=== PATIENT | male | born 1960 | race Hispanic/Latino ===

== ENCOUNTER 2016-10-22 11:37 | Emergency (ER) | payer MEDICARE ==
[2016-10-22 12:29] VITALS: BMI 36.3
[2016-10-22 12:31] VITALS: RESP 18; TEMP 98.3; O2SAT 96
[2016-10-22] MEDS ORDERED: Sodium Chloride 0.9% 1,000 ML IV STA (13:09)
[2016-10-22 13:54] LABS: PH,URINE 5.5 (4.7-8.0); URINE BILIRUBIN NEGATIVE (NEGATIVE); URINE BLOOD NEGATIVE (NEGATIVE); URINE GLUCOSE (UA) NEGATIVE (NEGATIVE); URINE KETONE NEGATIVE (NEGATIVE); URINE LEUKOCYTE ESTERASE NEGATIVE Leu/uL (NEGATIVE); URINE PROTEIN NEGATIVE mg/dL (<30 mg/dL); URINE UROBILINOGEN 0.2 E.U./dL (<1 E.U./dL)
[2016-10-22 13:59] LABS: BASO # 0.01 K/mm3 (0.0-2.0); BASO % 0.1 % (0.0-3.0); EOS # 0.2 (0.0-0.7); EOS % 1.8 % (1.5-5.0); GRAN # 5.85 (1.4-6.5); GRAN % 71.6 % (50.0-68.0); HEMATOCRIT 46.8 % (42.0-52.0); LYMPH # 1.7 (1.2-3.4); MEAN CELL VOLUME 89.7 fl (80.0-105.0); MEAN CORPUSCULAR HEMOGLOBIN 30.7 pg (25.0-35.0); MEAN CORPUSCULAR HGB CONC 34.2 g/dl (31.0-37.0); MEAN PLATELET VOLUME 9.5 fl (7.0-11.0); MONO # 0.5 (0.1-0.6); MONO % 5.5 % (1.0-6.0); URINE APPEARANCE CLEAR (CLEAR); URINE COLOR YELLOW (YELLOW); WHITE BLOOD COUNT 8.2 10^3/ul (4.5-11.0)
[2016-10-22 14:02] LABS: ALB/GLOB RATIO 1.4 (1.1-1.8); ALKALINE PHOSPHATASE 56 U/L (38-133); ALT/SGPT 47 U/L (7-56); AST/SGOT 27 U/L (15-59); BILIRUBIN,TOTAL 0.9 mg/dL (0.2-1.3); BLOOD UREA NITROGEN 12 mg/dL (7-21); CALCIUM 9.4 mg/dL (8.4-10.5); CARBON DIOXIDE 27 mmol/L (21-33); CHLORIDE 101 mmol/L (98-107); GFR AFRICAN-AMERICAN > 60; GLUCOSE,RANDOM 92 mg/dL (70-110); LIPASE 133 U/L (23-300); SODIUM 140 mmol/L (132-148); TOTAL PROTEIN 7.6 g/dL (5.8-8.3)
--- NOTE | 2016-10-22 14:36 | ED PDOC ---
Arrival/HPI - General Chief Complaint: Abdominal Pain Time Seen by Provider: 10/22/16 13:09 Historian: Patient - History of Present Illness Narrative History of Present Illness (Text): 10/22/16 13:09 Eduardo Lutz is a 55 year old male, whose past medical history includes diverticulosis, who presents to the emergency department complaining of 1 month history of worsening left-sided abdominal pain. Patient states that he spoke to his GI doctor today who told him to come to the emergency department for evaluation of diverticulitis. Patient notes that he has had intermittent LLQ painfor the past 2 months but over the past month, the pain has been occurring more frequently. Pt states he is moving to [place] and wants to make sure everything is okay. pt states the pain is currently intermittent and non- radiating. pt denies testicular pain. denies flank pain. Patient has not taken any medications for pain. Patient denies any nausea, vomiting, diarrhea, constipation, urinary symptoms, fever, chills, or any other complaints at this time. PMD: Dr. Naranjo Time/Duration: Other (1 month) Symptom Onset: Gradual Symptom Course: Worsening Severity Level: Mild Context: Home Past Medical History - Provider Review Nursing Documentation Reviewed: Yes - Past History Past History: No Previous - Infectious Disease Hx of Infectious Diseases: None - Tetanus Immunization Tetanus Immunization: Unknown - Reproductive Currently : No - Cardiac Hx Pacemaker: No - Pulmonary Hx Bronchitis: Yes - Neurological Hx Paralysis: No - Hematological/Oncological Hx Blood Transfusions: No Hx Blood Transfusion Reaction: No - Musculoskeletal/Rheumatological Hx Back Pain: Yes - Psychiatric Hx Emotional Abuse: No Hx Physical Abuse: No 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) - Past Surgical History Past Surgical History: Non-Contributing - Surgical History Hx Orthopedic Surgery: Yes Other/Comment: L & R THR - Anesthesia Hx Anesthesia: Yes Hx Anesthesia Reactions: No Hx Malignant Hyperthermia: No - Suicidal Assessment Feels Threatened In Home Enviroment: No Family/Social History - Physician Review Nursing Documentation Reviewed: Yes Family/Social History: No Known Family HX Smoking Status: Former Smoker Hx Alcohol Use: Yes Frequency of alcohol use: Socially 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) Hx Substance Use Treatment: No Allergies/Home Meds Allergies/Adverse Reactions: Allergies Sulfa (Sulfonamide Antibiotics) Allergy (Severe, Verified 05/10/15 13:36) RASH Home Medications: Home Meds Medication Instructions Recorded Confirmed No Known Home Med 10/22/16 10/22/16 Review of Systems - Physician Review All systems were reviewed & negative as marked: Yes - Review of Systems Constitutional: absent: Fevers, Night Sweats Eyes: absent: Vision Changes ENT: absent: Hearing Changes Respiratory: absent: SOB, Cough Cardiovascular: absent: Chest Pain Gastrointestinal: Abdominal Pain (Left-sided abdominal pain). absent: Diarrhea , Nausea, Vomiting Genitourinary Male: Other (no testicular pain). absent: Dysuria, Frequency, Hematuria Musculoskeletal: absent: Arthralgias, Back Pain Skin: absent: Rash, Pruritis Neurological: absent: Headache, Dizziness Endocrine: absent: Diaphoresis, Polyuria Hemo/Lymphatic: absent: Adenopathy, Easy Bleeding Physical Exam Vital Signs Reviewed: Yes Vital Signs Temp Pulse Resp BP Pulse Ox 10/22/16 16:15 63 18 116/71 96 10/22/16 15:31 65 18 114/78 96 10/22/16 14:00 69 18 112/75 96 10/22/16 12:31 98.3 F 73 18 110/73 96 Temperature: Afebrile Blood Pressure: Normal Pulse: Regular Respiratory Rate: Normal Appearance: Positive for: Well-Appearing, Non-Toxic, Comfortable Pain Distress: None Mental Status: Positive for: Alert and Oriented X 3 - Systems Exam Head: Present: Atraumatic, Normocephalic Mouth: Present: Moist Mucous Membranes Neck: Present: Normal Range of Motion Respiratory/Chest: Present: Clear to Auscultation, Good Air Exchange. No: Respiratory Distress, Accessory Muscle Use Cardiovascular: Present: Regular Rate and Rhythm, Normal S1, S2. No: Murmurs Abdomen: Present: Normal Bowel Sounds. No: Tenderness, Distention, Peritoneal Signs Back: Present: Normal Inspection. No: CVA Tenderness Upper Extremity: Present: Normal Inspection. No: Cyanosis, Edema Lower Extremity: Present: Normal Inspection. No: Edema Neurological: Present: GCS=15 Skin: Present: Warm, Dry, Normal Color. No: Rashes Psychiatric: Present: Alert, Oriented x 3 Medical Decision Making ED Course and Treatment: 10/22/16 16:17 Patient is nontoxic well appearing with stable vital signs presenting with a one to 2 month history of worsening abdominal pain pt comfortable; states he doesn't need any medications for pain. CBC wnl CMP wnl Urinalysis wnl CAT scan:FINDINGS: LOWER THORAX: Unremarkable LIVER: There is a heterogeneous pattern of fatty infiltration of the liver. This finding is unchanged. GALLBLADDER AND BILE DUCTS: Unremarkable. PANCREAS: There is pancreatic atrophy. SPLEEN: Unremarkable. ADRENALS: Unremarkable. No mass. KIDNEYS AND URETERS: Unremarkable. No hydronephrosis. No solid mass. VASCULATURE: Unremarkable. No aortic aneurysm. BOWEL: Unremarkable APPENDIX: Normal appendix. PERITONEUM: Unremarkable. No free fluid. No free air. LYMPH NODES: Unremarkable. No enlarged lymph nodes. BLADDER: Unremarkable. REPRODUCTIVE: Unremarkable. BONES: Previous fusion at L4-5 OTHER FINDINGS: None. IMPRESSION: No acute findings. Fatty infiltration of the liver unchanged Patient reassessment: Patient nontoxic well-appearing no distress with stable vital signs. Abdomen nontender Discussed all results with patient in depth stressed importance of follow-up with a GI doctor and primary care physician within the next 2 days. Advised me to return if symptoms worsen or persist or if new concerning symptoms develop Patient verbalizes understanding of discharge instructions and need for immediate followup. Impression: Abdominal pain Motrin every 6 hours as needed for pain Follow up with the GI doctor within the next 2 days. Follow up with primary care physician within the next 2 days Return immediately if symptoms worsen persist or if new symptoms develop: High fevers, increasing pain, vomiting, diarrhea or any other concerning symptoms develop - Lab Interpretations Lab Results: 10/22/16 13:35 10/22/16 13:35 Lab Results 10/22/16 13:35: WBC 8.2, RBC 5.22, Hgb 16.0, Hct 46.8, MCV 89.7, MCH 30.7, MCHC 34.2, RDW 13.0, Plt Count 171, MPV 9.5, Gran % 71.6 H, Lymph % (Auto) 21.0 L, [place] % (Auto) 5.5, Eos % (Auto) 1.8, Baso % (Auto) 0.1, Gran # 5.85, Lymph # 1.7 , [place] # 0.5, Eos # 0.2, Baso # 0.01 10/22/16 13:35: Sodium 140, Potassium 4.0, Chloride 101, Carbon Dioxide 27, Anion Gap 16, BUN 12, Creatinine 0.9, Est GFR ( Amer) > 60, Est GFR (Non- Af Amer) > 60, Random Glucose 92, Calcium 9.4, Total Bilirubin 0.9, AST 27, ALT 47, Alkaline Phosphatase 56, Total Protein 7.6, Albumin 4.5, Globulin 3.2, Albumin/Globulin Ratio 1.4, Lipase 133 10/22/16 13:35: Urine Color Yellow, Urine Appearance Clear, Urine pH 5.5, Ur Specific [place] >= 1.030, Urine Protein Negative, Urine Glucose (UA) Negative, Urine Ketones Negative, Urine Blood Negative, Urine Nitrate Negative, Urine Bilirubin Negative, Urine Urobilinogen 0.2, Ur Leukocyte Esterase Negative - RAD Interpretation Radiology Orders: 10/22/16 13:30 ABD & PELVIS IV CONTRAST ONLY [CT] Stat - Medication Orders Current Medication Orders: Discontinued Medications Sodium Chloride (Sodium Chloride 0.9%) 1,000 mls @ 999 mls/hr IV .Q1H1M STA Stop: 10/22/16 14:09 Last Admin: 10/22/16 13:48 Dose: 999 mls/hr Iohexol (Omnipaque 350 150 Ml) Confirm Administered Dose 150 ml .ROUTE .[employer] ONE Stop: 10/22/16 14:25 - Scribe Statement The provider has reviewed the documentation as recorded by the Bill Jones Provider Scribe Attestation: All medical record entries made by the Scribe were at my direction and personally dictated by me. I have reviewed the chart and agree that the record accurately reflects my personal performance of the history, physical exam, medical decision making, and the department course for this patient. I have also personally directed, reviewed, and agree with the discharge instructions and disposition. Disposition/Present on Arrival - Present on Arrival Any Indicators Present on Arrival: No History of DVT/PE: No History of Uncontrolled Diabetes: No Urinary Catheter: No History of Decub. Ulcer: No History Surgical Site Infection Following: None - Disposition Have Diagnosis and Disposition been Completed?: Yes Diagnosis: Abdominal pain Disposition: HOME/ ROUTINE Disposition Time: 16:15 Patient Plan: Discharge Condition: GOOD Discharge Instructions (ExitCare): Abdominal Pain (ED) Additional Instructions: Motrin every 6 hours as needed for pain Follow up with the GI doctor within the next 2 days. Follow up with primary care physician within the next 2 days Return immediately if symptoms worsen persist or if new symptoms develop: High fevers, increasing pain, vomiting, diarrhea or any other concerning symptoms develop Referrals: Matthew Naranjo MD [Primary Care Provider] - Follow up with primary Migdalia Govea MD [Medical Doctor] - Follow up with primary Blayne Wheat DO [Staff Provider] - Follow up with primary Forms: [employer] (Portuguese), WORK NOTE
--- NOTE | 2016-10-22 15:20 | CT ---
PROCEDURE: CT Abdomen and Pelvis with contrast HISTORY: abd pain COMPARISON: 03/14/2015 TECHNIQUE: Contrast dose: 150 cc of Omni 350 Radiation dose: Total exam DLP = 1214 mGy-cm. This CT exam was performed using one or more of the following dose reduction techniques: Automated exposure control, adjustment of the mA and/or kV according to patient size, and/or use of iterative reconstruction technique. FINDINGS: LOWER THORAX: Unremarkable LIVER: There is a heterogeneous pattern of fatty infiltration of the liver. This finding is unchanged. GALLBLADDER AND BILE DUCTS: Unremarkable. PANCREAS: There is pancreatic atrophy. SPLEEN: Unremarkable. ADRENALS: Unremarkable. No mass. KIDNEYS AND URETERS: Unremarkable. No hydronephrosis. No solid mass. VASCULATURE: Unremarkable. No aortic aneurysm. BOWEL: Unremarkable APPENDIX: Normal appendix. PERITONEUM: Unremarkable. No free fluid. No free air. LYMPH NODES: Unremarkable. No enlarged lymph nodes. BLADDER: Unremarkable. REPRODUCTIVE: Unremarkable. BONES: Previous fusion at L4-5 OTHER FINDINGS: None. IMPRESSION: No acute findings. Fatty infiltration of the liver unchanged
[2016-10-22 16:15] VITALS: BP 116/71; PULSE 63
== END 2016-10-22 16:20 | disposition home or self-care (01) ==
LOC: ED 11:37
DX: R10.9 Unspecified abdominal pain (principal); K57.90 Diverticulosis of intestine, part unspecified, without perforation or abscess without bleeding
CPT/HCPCS: 74177; 80053; 81003; 83690; 85025; 99284; J7040; Q9967

== ENCOUNTER 2017-09-18 13:43 | Emergency (ER) | payer MEDICARE ==
[2017-09-18 13:43] VITALS: BMI 36.3
[2017-09-18 14:04] VITALS: TEMP 98.2
[2017-09-18] MEDS ORDERED: Sodium Chloride 0.9% 1,000 ML IV STA (14:29)
--- NOTE | 2017-09-18 15:21 | ED PDOC ---
Arrival/HPI - General Historian: Patient - History of Present Illness Time/Duration: > month Symptom Onset: Gradual Activities at Onset: Light Context: Home <Graeme Vazquez - Last Filed: 09/18/17 17:09> <Merlin Johnson DO - Last Filed: 09/18/17 22:41> - General Chief Complaint: Abdominal Pain Time Seen by Provider: 09/18/17 14:27 - History of Present Illness Narrative History of Present Illness (Text): 09/18/17 15:13 This is a 56 year old male with PMH of diverticulosis, colitis and hemorrhoids presenting to the ER for 6 week history of worsening LLQ pain. He states pain is constant, rated 10/10, non radiating, better with not eating and worse when lying flat. He went to the ER last month for pain, and CT scan at that time showed colitis and he was discharged on antibiotics. Patient states pain has gotten worse since then. He denies CP, SOB, urinary complaints, blood in the urine or stool, diarrhea, constipation, fevers, chills, nausea, vomiting, melena , back pain, and recent sickness. He currently takes no medications. PMD is Dr. Naranjo GI is Dr. Govea (Graeme Vazquez) Past Medical History - Provider Review Nursing Documentation Reviewed: Yes - Past History Past History: No Previous - Infectious Disease Hx of Infectious Diseases: None - Tetanus Immunization Tetanus Immunization: Unknown - Cardiac Hx Cardiac Disorders: No - Pulmonary Hx Respiratory Disorders: Yes Hx Bronchitis: Yes - Neurological Hx Neurological Disorder: No - HEENT Hx HEENT Disorder: No - Renal Hx Renal Disorder: No - Endocrine/Metabolic Hx Endocrine Disorders: No - Hematological/Oncological Hx Blood Disorders: No - Integumentary Hx Dermatological Disorder: No - Musculoskeletal/Rheumatological Hx Musculoskeletal Disorders: Yes Hx Back Pain: Yes - Gastrointestinal Hx Gastrointestinal Disorders: Yes Hx Colitis: Yes - Genitourinary/Gynecological Hx Genitourinary Disorders: No - Psychiatric Hx Psychophysiologic Disorder: No 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) - Past Surgical History Past Surgical History: Non-Contributing - Surgical History Hx Orthopedic Surgery: Yes - Anesthesia Hx Anesthesia: Yes Hx Anesthesia Reactions: No Hx Malignant Hyperthermia: No - Suicidal Assessment Feels Threatened In Home Enviroment: No <Graeme Vazquez - Last Filed: 09/18/17 17:09> Family/Social History - Physician Review Nursing Documentation Reviewed: Yes Family/Social History: Unknown Family HX Smoking Status: Former Smoker Hx Alcohol Use: Yes 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) Hx Substance Use Treatment: No <Graeme Vazquez - Last Filed: 09/18/17 17:09> Allergies/Home Meds <Graeme Vazquez - Last Filed: 09/18/17 17:09> <Merlin Johnson DO - Last Filed: 09/18/17 22:41> Allergies/Adverse Reactions: Allergies Sulfa (Sulfonamide Antibiotics) Allergy (Severe, Verified 09/18/17 14:00) RASH Home Medications: Home Meds Medication Instructions Recorded Confirmed No Known Home Med 10/22/16 09/18/17 Review of Systems - Physician Review All systems were reviewed & negative as marked: Yes - Review of Systems Constitutional: Normal. absent: Fevers Eyes: Normal ENT: Normal Respiratory: Normal. absent: SOB, Cough Cardiovascular: Normal. absent: Chest Pain, Palpitations Gastrointestinal: Other (LLQ abdominal pain). absent: Constipation, Diarrhea, Nausea, Vomiting, Hematochezia, Hematemesis Genitourinary Male: Normal. absent: Dysuria, Frequency, Hematuria Musculoskeletal: Normal Skin: Normal Neurological: Normal. absent: Headache, Dizziness Psychiatric: Normal <Graeme Vazquez - Last Filed: 09/18/17 17:09> Vital Signs Temp Pulse Resp BP Pulse Ox 09/18/17 17:18 98.2 F 80 18 127/86 98 09/18/17 14:00 98.2 F 71 17 109/65 97 Medical Decision Making <Graeme Vazquez - Last Filed: 09/18/17 17:09> <Merlin Johnson DO - Last Filed: 09/18/17 22:41> ED Course and Treatment: 09/18/17 15:22 Impression: This is a 56 year old male with PMH of diverticulosis, colitis and hemorrhoids presenting to the ER for 6 week history of worsening LLQ pain. Differential not limited to: Diverticlosis vs diverticulitis vs colitis Plan: -blood work, lipase -CT abdomen -zofran, famotidine Progress: 09/18/17 16:58 CT abd/pelvis: No acute abdominal pelvic pathology. 09/18/17 17:09 Patient is resting comfortably, vitals are stable and afebrile. Patient to call Dr. Govea in the morning to schedule GI appointment. Patient agrees with plan and stable for discharge. (Graeme Vazquez) Impression: 56 year old male presents to the Emergency Department for 6 week history of worsening LLQ pain. In agreement with resident note, which includes further HPI details. Patient was seen and evaluated with resident, came up with plan and treatment together. (Merlin Johnson DO) - Lab Interpretations Lab Results: 09/18/17 15:23 09/18/17 15:23 Lab Results 09/18/17 15:30: Urine Color Yellow, Urine Appearance Clear, Urine pH 6.0, Ur Specific [place] 1.010, Urine Protein Negative, Urine Glucose (UA) Negative, Urine Ketones Negative, Urine Blood Negative, Urine Nitrate Negative, Urine Bilirubin Negative, Urine Urobilinogen 0.2, Ur Leukocyte Esterase Trace H, Urine RBC 0 - 2, Urine WBC 0 - 2, Ur Epithelial Cells None, Urine Bacteria Neg 09/18/17 15:23: Sodium 144, Potassium 4.4, Chloride 104, Carbon Dioxide 28, Anion Gap 16, BUN 9, Creatinine 0.8, Est GFR ( Amer) > 60, Est GFR (Non- Af Amer) > 60, Random Glucose 92, Calcium 9.2, Magnesium 2.3 H, Total Bilirubin 0.6, AST 26, ALT 30, Alkaline Phosphatase 52, Total Protein 7.3, Albumin 4.2, Globulin 3.1, Albumin/Globulin Ratio 1.4, Lipase 181 09/18/17 15:23: WBC 6.2 D, RBC 4.81, Hgb 14.6, Hct 44.2, MCV 91.9, MCH 30.4, MCHC 33.0, RDW 13.2, Plt Count 202, MPV 9.4, Gran % 61.2, Lymph % (Auto) 29.2, [place] % (Auto) 6.5 H, Eos % (Auto) 2.8, Baso % (Auto) 0.3, Gran # 3.78, Lymph # ( Auto) 1.8, [place] # (Auto) 0.4, Eos # (Auto) 0.2, Baso # (Auto) 0.02 - RAD Interpretation Radiology Orders: 09/18/17 14:30 ABD & PELVIS IV CONTRAST ONLY [CT] Stat - Medication Orders Current Medication Orders: Discontinued Medications Famotidine (Pepcid) 20 mg IVP STAT STA Stop: 09/18/17 14:30 Last Admin: 09/18/17 15:26 Dose: 20 mg IVP Administration Document 09/18/17 15:26 HI (Rec: 09/18/17 15:26 [place] [id number]) Charges for Administration # of IVP Administrations 1 Sodium Chloride (Sodium Chloride 0.9%) 1,000 mls @ 100 mls/hr IV .Q10H STA Stop: 09/19/17 00:28 Last Admin: 09/18/17 15:26 Dose: 100 mls/hr eMAR Start Stop Document 09/18/17 15:26 [place] (Rec: 09/18/17 15:26 [facility]) Intravenous Solution Start Date 09/18/17 Start Time 15:26 Ondansetron HCl (Zofran Inj) 4 mg IVP STAT STA Stop: 09/18/17 14:30 Last Admin: 09/18/17 15:26 Dose: 4 mg IVP Administration Document 09/18/17 15:26 [place] (Rec: 09/18/17 15:26 [place] [id number]) Charges for Administration # of IVP Administrations 1 - PA / [employer] / Resident Statement MARK has reviewed & agrees with the documentation as recorded. MARK has examined the patient and agrees with the treatment plan. <Graeme Vazquez - Last Filed: 09/18/17 17:09> - PA / [employer] / Resident Statement MARK has reviewed & agrees with the documentation as recorded. MARK has examined the patient and agrees with the treatment plan. - Scribe Statement The provider has reviewed the documentation as recorded by the Scribe <Merlin Johnson DO - Last Filed: 09/18/17 22:41> - Scribe Statement Qiana Klein, training with Mike Thomson. All medical record entries made by the Scribe were at my direction and personally dictated by me. I have reviewed the chart and agree that the record accurately reflects my personal performance of the history, physical exam, medical decision making, and the department course for this patient. I have also personally directed, reviewed, and agree with the discharge instructions and disposition. (Merlin Johnson DO) Disposition/Present on Arrival - Present on Arrival History of DVT/PE: No History of Uncontrolled Diabetes: No Urinary Catheter: No History of Decub. Ulcer: No History Surgical Site Infection Following: None <Graeme Vazquez - Last Filed: 09/18/17 17:09> - Present on Arrival Any Indicators Present on Arrival: No - Disposition Have Diagnosis and Disposition been Completed?: Yes Disposition Time: 16:45 <Alex HOUSTONMerlin - Last Filed: 09/18/17 22:41> - Disposition Diagnosis: Chronic abdominal pain Disposition: HOME/ ROUTINE Condition: GOOD Discharge Instructions (ExitCare): Acute Abdomen (Belly Pain), Adult (DC) Additional Instructions: LAUREN KEARNS, thank you for letting us take care of you today. Your provider was Merlin Johnson DO and you were treated for ABD PAIN. The emergency medical care you received today was directed at your acute symptoms. If you were prescribed any medication, please fill it and take as directed. It may take several days for your symptoms to resolve. Return to the Emergency Department if your symptoms worsen, do not improve, or if you have any other problems. Please contact your doctor or call one of the physicians/clinics you have been referred to that are listed on the Patient Visit Information form that is included in your discharge packet. Bring any paperwork you were given at discharge with you along with any medications you are taking to your follow up visit. Our treatment cannot replace ongoing medical care by a primary care provider outside of the emergency department. Thank you for allowing the [facility] team to be part of your care today. Follow up with your GI doctor in 1-2 days. He is expecting you to call for a follow up visit. Referrals: Migdalia Govea MD [Medical Doctor] - Follow up with primary Forms: [employer] (Khmer)
[2017-09-18 15:57] LABS: ALB/GLOB RATIO 1.4 (1.1-1.8); ALBUMIN 4.2 g/dL (3.0-4.8); ALT/SGPT 30 U/L (7-56); AST/SGOT 26 U/L (17-59); BASO # 0.02 K/mm3 (0.0-2.0); BASO % 0.3 % (0.0-3.0); BLOOD UREA NITROGEN 9 mg/dL (7-21); CALCIUM 9.2 mg/dL (8.4-10.5); EOS # 0.2 (0.0-0.7); EOS % 2.8 % (1.5-5.0); GFR AFRICAN-AMERICAN > 60; GFR NON-AFRICAN AMERICAN > 60; GRAN # 3.78 (1.4-6.5); GRAN % 61.2 % (50.0-68.0); HEMOGLOBIN 14.6 g/dL (14.0-18.0); LIPASE 181 U/L (23-300); LYMPH # 1.8 (1.2-3.4); LYMPH % 29.2 % (22.0-35.0); MEAN CELL VOLUME 91.9 fl (80.0-105.0); MEAN CORPUSCULAR HEMOGLOBIN 30.4 pg (25.0-35.0); MEAN PLATELET VOLUME 9.4 fl (7.0-11.0); MONO # 0.4 (0.1-0.6); MONO % 6.5 % (1.0-6.0); RBC 4.81 10^6/uL (3.5-6.1); RED CELL DISTRIBUTION WIDTH 13.2 % (11.5-14.5); WHITE BLOOD COUNT 6.2 10^3/ul (4.5-11.0)
[2017-09-18 16:07] LABS: URINE BILIRUBIN NEGATIVE (NEGATIVE); URINE BLOOD NEGATIVE (NEGATIVE); URINE GLUCOSE (UA) NEGATIVE (NEGATIVE); URINE LEUKOCYTE ESTERASE TRACE Leu/uL (NEGATIVE); URINE PROTEIN NEGATIVE mg/dL (<30 mg/dL); URINE UROBILINOGEN 0.2 E.U./dL (<1 E.U./dL)
[2017-09-18 16:08] LABS: URINE APPEARANCE CLEAR (CLEAR); URINE COLOR YELLOW (YELLOW)
[2017-09-18 16:14] LABS: URINE BACTERIA NEG (NEG); URINE RBC 0 - 2 /hpf (0-2); URINE WBC 0 - 2 /hpf (0-6)
--- NOTE | 2017-09-18 16:51 | CT ---
Date of service: 09/18/2017 PROCEDURE: CT Abdomen and Pelvis with contrast HISTORY: diffuse abd pain - ? colitis vs. diverticulitis COMPARISON: CT scan of the abdomen pelvis dated 10/22/2016. TECHNIQUE: Contrast dose: 150 mL Omnipaque 350 Radiation dose: Total exam DLP = 1330.7 mGy-cm. This CT exam was performed using one or more of the following dose reduction techniques: Automated exposure control, adjustment of the mA and/or kV according to patient size, and/or use of iterative reconstruction technique. FINDINGS: LOWER THORAX: Unremarkable. LIVER: Diffuse hepatic steatosis. No gross lesion or ductal dilatation. GALLBLADDER AND BILE DUCTS: Unremarkable. PANCREAS: Unremarkable. No gross lesion or ductal dilatation. SPLEEN: Unremarkable. ADRENALS: Unremarkable. No mass. KIDNEYS AND URETERS: Unremarkable. No hydronephrosis. No solid mass. VASCULATURE: Unremarkable. No aortic aneurysm. BOWEL: Minimal colonic diverticulosis. No obstruction. No gross mural thickening. APPENDIX: Normal appendix. PERITONEUM: Unremarkable. No free fluid. No free air. LYMPH NODES: Unremarkable. No enlarged lymph nodes. BLADDER: Unremarkable. REPRODUCTIVE: Unremarkable. BONES: Bilateral hip arthroplasties. Posterior fusion from L4-S1. OTHER FINDINGS: None. IMPRESSION: No acute abdominal pelvic pathology.
[2017-09-18 18:16] VITALS: BP 127/86; PULSE 80; RESP 18; O2SAT 98
== END 2017-09-18 17:18 | disposition home or self-care (01) ==
LOC: ED 13:43
DX: G89.29 Other chronic pain (principal); R10.32 Left lower quadrant pain; Z87.891 Personal history of nicotine dependence
CPT/HCPCS: 74177; 80053; 81001; 83690; 83735; 85025; 87086; 96374; 96375; 99283; J2405; J7030; Q9967

== ENCOUNTER 2018-03-03 02:48 | Emergency (ER) | payer MEDICARE ==
[2018-03-03 02:54] VITALS: BMI 33.0
[2018-03-03 03:01] VITALS: TEMP 98
[2018-03-03] MEDS ORDERED: Lidocaine 5% Patch TD ONE (03:23)
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
[2018-03-03 05:32] VITALS: BP 129/82; PULSE 80; RESP 18; O2SAT 100
--- NOTE | 2018-03-03 09:29 | RAD ---
Date of service: 03/03/2018 HISTORY: right sided chest wall pain r/o rib fx COMPARISON: 03/08/2012 FINDINGS: LUNGS: No active pulmonary disease. PLEURA: No significant pleural effusion identified, no pneumothorax apparent. CARDIOVASCULAR: No aortic atherosclerotic calcification present. Normal cardiac size. No pulmonary vascular congestion. OSSEOUS STRUCTURES: No significant abnormalities. VISUALIZED UPPER ABDOMEN: Normal. OTHER FINDINGS: None. IMPRESSION: No active disease.
--- NOTE | 2018-03-03 13:38 | CARD ---
APPROVED REPORT Date of service: 03/03/2018 EKG Measurement Heart [id number] <Conclusion> Normal sinus rhythm Incomplete right bundle branch block Borderline ECG
== END 2018-03-03 05:10 | disposition home or self-care (01) ==
LOC: ED 02:48
DX: S20.219A Contusion of unspecified front wall of thorax, initial encounter (principal); W07.XXXA Fall from chair, initial encounter; Y92.89 Other specified places as the place of occurrence of the external cause
CPT/HCPCS: 71045; 93005; 96372; 99284; J1885